=== PATIENT | female | born 1965 | race African-American/Black ===

== ENCOUNTER 2018-05-17 22:13 | Emergency (ER) | payer SELFPAY | END 2018-05-17 23:40 | disposition left against medical advice (07) | LOC: ER 22:13 | DX: S99.919A Unspecified injury of unspecified ankle, initial encounter (principal); Z53.21 Procedure and treatment not carried out due to patient leaving prior to being seen by health care provider; X58.XXXA Exposure to other specified factors, initial encounter; Y93.89 Activity, other specified; Y92.89 Other specified places as the place of occurrence of the external cause; Y99.8 Other external cause status ==